=== PATIENT | female | born 1945 | race Caucasian/White ===

== ENCOUNTER 2021-03-04 12:15 | Outpatient (CLI) | payer MEDICARE, BC | END 2021-03-04 12:16 | disposition home or self-care (01) | LOC: CSHMAMMO 12:15 | PROVIDERS: ATTEND Internal Medicine | DX: Z12.31 Encounter for screening mammogram for malignant neoplasm of breast (principal) | CPT/HCPCS: 77063; 77067 ==

== ENCOUNTER 2022-09-10 10:47 | Outpatient (CLI) | payer MEDICARE, BC | END 2022-09-10 10:48 | disposition home or self-care (01) | LOC: CSHMAMMO 10:47 | PROVIDERS: ATTEND Internal Medicine | DX: Z12.31 Encounter for screening mammogram for malignant neoplasm of breast (principal) | CPT/HCPCS: 77063; 77067 ==

== ENCOUNTER 2023-02-17 10:28 | Emergency (ER) | payer MEDICARE, BC ==
[2023-02-17 12:39] LABS: #Eosinphils 0.2 10x3/uL (0.0-0.5); #Monocytes 0.7 10x3/uL (0.0-1.1); #Neutrophils 6.8 10x3/uL (1.5-8.4); %Basophils 0.4 % (0.0-2.0); %Eosinophils 1.8 % (0.0-6.0); %Monocytes 7.4 % (0.0-10.0); %Neutrophils 72.2 % (40.0-75.0); Hematocrit 47.2 % (34.9-44.5); Hemoglobin 15.8 g/dL (12.0-15.5); Mean Corpuscular HGB CONC 33.5 g/dL (32.0-36.0); Mean Corpuscular Hemoglobin 29.6 pg (27.0-33.0); Mean Corpuscular Volume 88.6 fl (81.6-98.3); Mean Platelet Volume 9.2 fl (7.4-10.4); Platelet Count 319 10x3/uL (150-450); RBC Distribution Width 13.8 % (11.5-14.5); Red Blood Cell (RBC) Count 5.33 10x6/uL (3.90-5.03); White Blood Cell (WBC) Count 9.4 10x3/uL (3.5-10.5)
[2023-02-17 12:43] LABS: ALT (SGPT) 15 U/L (8-55); AST (SGOT) 26 U/L (5-34); Albumin 4.4 g/dL (3.4-4.8); Alkaline Phosphatase 75 U/L (40-110); Anion Gap 20 mmol/L (10-20); BUN (Urea Nitrogen) 17 mg/dL (9.8-20.1); Bilirubin, Total 1.2 mg/dL (0.2-1.2); Calc. Creatinine Clearance 0 mL/min (70-130); Calcium 10.6 mg/dL (7.8-10.44); Carbon Dioxide 31 mmol/L (23-31); Chloride 91 mmol/L (98-107); Estimated GFR 54; Globulin 3.8 g/dL (2.4-3.5); Glucose 141 mg/dL (83-110); Potassium 2.9 mmol/L (3.5-5.1); Protein, Total 8.2 g/dL (5.8-8.1); Sodium 139 mmol/L (136-145)
[2023-02-17] MEDS ORDERED: Promethazine HCl 12.5 MG in Sodium Chloride 0.9% 50 ML IVPB SCH (14:00)
[2023-02-17 14:36] LABS: Bilirubin 3+ (Negative); Blood, Urine 10 (Negative); Clarity Cloudy (Clear); Glucose, Urine (Dipstick) Normal (Negative); Ketone, Urine 50 mg/dL (Negative); Leukocyte 500 (Negative); Nitrite Negative (Negative); Protein, Urine (Dipstick) 30 mg/dl (Neg-Trace); Specific Gravity, Urine 1.025 (1.005-1.030)
[2023-02-17 14:53] LABS: CAUTI Indications for Culture Fever or rigors; RBC/HPF 0-3 HPF (0-3)
[2023-02-17 14:54] LABS: Bacteria/HPF 2+ HPF (None Seen); Mucous/LPF 2+ LPF (<2+); Renal Epithelial 0-3 HPF (None Seen)
[2023-02-17 14:57] LABS: Urine Culture Reflex Yes Yes
== END 2023-02-17 16:45 | disposition home or self-care (01) ==
LOC: CSHERS 10:28
DX: N39.0 Urinary tract infection, site not specified (principal); I25.10 Atherosclerotic heart disease of native coronary artery without angina pectoris; E11.9 Type 2 diabetes mellitus without complications
CPT/HCPCS: 36415; 80053; 81001; 83605; 83690; 85025; 87086; 96374; J2550

== ENCOUNTER 2024-04-15 12:04 | Outpatient (CLI) | payer MEDICARE, BC | END 2024-04-15 12:05 | disposition home or self-care (01) | LOC: CSHMRI 12:04 | PROVIDERS: ATTEND Internal Medicine | DX: M54.41 Lumbago with sciatica, right side (principal); M47.816 Spondylosis without myelopathy or radiculopathy, lumbar region; M48.061 Spinal stenosis, lumbar region without neurogenic claudication | CPT/HCPCS: 72148 ==